=== PATIENT | female | born 2000 | race Hispanic/Latino ===

== ENCOUNTER → 2024-06-15 | Outpatient (REF) | LOC: M LAB 13:37 | PROVIDERS: ATTEND Nurse Practitioner Adult Health | DX: Z01.89 Encounter for other specified special examinations (principal) ==

== ENCOUNTER → 2024-07-02 | Outpatient (REF) | LOC: M EMP 11:13 | PROVIDERS: ATTEND Family Medicine | DX: R09.89 Other specified symptoms and signs involving the circulatory and respiratory systems (principal) ==

== ENCOUNTER → 2024-07-24 | Outpatient (REF) | LOC: M EMP 10:30 | PROVIDERS: ATTEND Family Medicine | DX: Z11.52 Encounter for screening for COVID-19 (principal) ==

== ENCOUNTER 2024-08-20 23:44 | Emergency (ER) | payer OTHER ==
[~2024-08-20] VITALS: Ht 162.6 cm; Wt 68.2 kg
[2024-08-21 00:12] LABS: URINE PREG TEST POSITIVE (NEGATIVE)
[2024-08-21] MEDS ORDERED: LIDO5DIS41 TD (05:22)
[2024-08-21] MEDS: LIDOCAINE 5% (LIDODERM) PATCH TD ONE (05:30)
[2024-08-21 05:50] VITALS: BP 123/59; TEMP 98.2; O2SAT 99
== END 2024-08-21 05:55 | disposition home or self-care (01) ==
LOC: M ED 23:44
DX: O26.891 Other specified pregnancy related conditions, first trimester (principal); M54.50 Low back pain, unspecified; Z3A.01 Less than 8 weeks gestation of pregnancy; Z79.899 Other long term (current) drug therapy

== ENCOUNTER → 2024-08-31 | Outpatient (REF) ==
[~2024-08-31] MED LIST: LIDO5DIS41 TD
== END ==
LOC: M EMP 07:49
PROVIDERS: ATTEND Family Medicine
DX: Z11.52 Encounter for screening for COVID-19 (principal)

== ENCOUNTER → 2024-08-31 | Outpatient (REF) | LOC: M EMP 08:49 | PROVIDERS: ATTEND Family Medicine | DX: Z11.52 Encounter for screening for COVID-19 (principal); Z20.828 Contact with and (suspected) exposure to other viral communicable diseases ==

== ENCOUNTER 2024-10-10 18:24 | Emergency (ER) | payer OTHER ==
[~2024-10-10] VITALS: Ht 162.6 cm; Wt 67.1 kg
[2024-10-10] MEDS ORDERED: ACET-683 PO (18:33)
[2024-10-10] MEDS ORDERED: FLUO-365 (18:33)
[2024-10-10] MEDS ORDERED: AMOX875T (18:33)
[2024-10-10 19:40] VITALS: BP 112/63; TEMP 98.4; O2SAT 98
[2024-10-10] MEDS ORDERED: LIDVISCBTL SSP (19:57)
== END 2024-10-10 20:07 | disposition home or self-care (01) ==
LOC: M ED 18:24
DX: J02.0 Streptococcal pharyngitis (principal); Z87.891 Personal history of nicotine dependence; Z79.2 Long term (current) use of antibiotics; Z79.1 Long term (current) use of non-steroidal anti-inflammatories (NSAID); Z79.899 Other long term (current) drug therapy

== ENCOUNTER 2025-02-08 11:35 | Emergency (ER) | payer OTHER ==
[~2025-02-08] VITALS: Ht 165.1 cm; Wt 77.6 kg
[~2025-02-08 11:35] MED LIST changes: +ACET-683 PO; +AMOX875T; +FLUO-365; +LIDVISCBTL SSP
[2025-02-08 11:40] VITALS: BP 117/70; TEMP 99.5; O2SAT 99
[2025-02-08] MEDS ORDERED: TUMS500C PO (12:21)
[2025-02-08] MEDS ORDERED: PRENTAB9 PO (12:21)
== END 2025-02-08 12:01 | disposition admitted as inpatient to this hospital (09) ==
LOC: M ED 11:35
DX: Z53.21 Procedure and treatment not carried out due to patient leaving prior to being seen by health care provider (principal)

== ENCOUNTER 2025-02-08 12:06 | Outpatient (CLI) | payer OTHER ==
[~2025-02-08] VITALS: Ht 162.6 cm; Wt 75.7 kg
[2025-02-08] MEDS ORDERED: TUMS500C PO (12:21)
[2025-02-08] MEDS ORDERED: PRENTAB9 PO (12:21)
[2025-02-08 12:25] VITALS: BP 115/60
[2025-02-08] MEDS ORDERED: HOME MED LIST COMPLETE! XX SCH (12:35)
[2025-02-08 14:22] LABS: APPEARANCE, URINE HAZY (CLEAR); BACTERIA, URINE AUTO NEGATIVE (NEGATIVE); BILIRUBIN, URINE AUTO NEGATIVE (NEGATIVE); BLOOD, URINE BLOOD NEGATIVE (NEGATIVE); COLOR, URINE YELLOW (YELLOW); GLUCOSE, URINE (UA) AUTO NEGATIVE (NEGATIVE); KETONE, URINE AUTO NEGATIVE (NEGATIVE); LEUKOCYTE ESTERASE, URINE AUTO NEGATIVE (NEGATIVE); MUCUS, URINE SMALL (NEGATIVE); NITRITE, URINE AUTO NEGATIVE (NEGATIVE); PROTEIN, URINE AUTO NEGATIVE (NEGATIVE); RBC, URINE AUTO 0 /HPF (0-3); SPECIFIC GRAVITY URINE AUTO 1.018 (1.002-1.035); SQUAMOUS EPITHELIAL CELL UR AU 9 /HPF (0-6); UROBILINOGEN, URINE AUTO 0.2 mg/dL (0.0-2.0); WBC, URINE AUTO 4 /HPF (0-3)
[2025-02-08 14:26] LABS: HEMATOCRIT 29.7 % (36.0-47.0); HEMOGLOBIN 9.4 g/dl (12.0-15.5); MEAN CORPUSCULAR HEMOGLOBIN 23.4 pg (27.0-33.0); MEAN CORPUSCULAR HGB CONC 31.6 g/dl (32.0-36.5); MEAN CORPUSCULAR VOLUME 74.1 fl (80.0-96.0); PLATELET COUNT, AUTOMATED 314 10^3/uL (150-450); RED BLOOD COUNT 4.01 10^6/uL (4.00-5.40)
[2025-02-08] MEDS: MULTIVITAMIN -ADULT INJECTION 10 ML in NS (Normal Saline) 0.9% 1,000 ML IV ONE (14:39)
[2025-02-08] MEDS: ONDANSETRON 4MG 2ML VIAL IV ONE (14:50)
[2025-02-08 14:58] LABS: ALBUMIN 2.9 G/DL (3.2-5.2); ALKALINE PHOSPHATASE 100 U/L (35-104); ALT/SGPT 17 U/L (7.0-40); AST/SGOT 18 U/L (<34); BILIRUBIN,TOTAL 0.4 MG/DL (0.3-1.2); BLOOD UREA NITROGEN 7 MG/DL (9-23); CALCIUM LEVEL 8.4 MG/DL (8.5-10.1); CARBON DIOXIDE LEVEL 23 MMOL/L (20-31); CHLORIDE LEVEL 105 MMOL/L (98-107); GLOMERULAR FILTRATION RATE > 90.0 (>60); GLUCOSE, FASTING 74 MG/DL (60-100); POTASSIUM SERUM 3.8 MMOL/L (3.5-5.1); SODIUM LEVEL 137 MMOL/L (136-145); TOTAL PROTEIN 6.6 G/DL (5.7-8.2)
== END 2025-02-08 17:02 | disposition home or self-care (01) ==
LOC: M LDO 12:06
PROVIDERS: ATTEND Advanced Practice Midwife
DX: O21.2 Late vomiting of pregnancy (principal); O99.343 Other mental disorders complicating pregnancy, third trimester; O99.353 Diseases of the nervous system complicating pregnancy, third trimester; F41.9 Anxiety disorder, unspecified; F32.A Depression, unspecified; G43.909 Migraine, unspecified, not intractable, without status migrainosus; Z3A.31 31 weeks gestation of pregnancy
CPT/HCPCS: 36415; 59025; 80053; 81001; 85027; 96360; 96374; G0463; J2405

== ENCOUNTER 2025-03-08 15:40 | Outpatient (CLI) | payer OTHER ==
[~2025-03-08] VITALS: Ht 162.6 cm; Wt 78.6 kg
[~2025-03-08 15:40] MED LIST changes: +LIDO1ADH93 TD; -LIDO5DIS41 TD; +PRENTAB9 PO; +TUMS500C PO
[2025-03-08 16:05] VITALS: BP 120/64
[2025-03-08 17:36] LABS: APPEARANCE, URINE CLOUDY (CLEAR); BACTERIA, URINE AUTO NEGATIVE (NEGATIVE); BILIRUBIN, URINE AUTO NEGATIVE (NEGATIVE); BLOOD, URINE BLOOD NEGATIVE (NEGATIVE); COLOR, URINE YELLOW (YELLOW); GLUCOSE, URINE (UA) AUTO 2+ mg/dL (NEGATIVE); KETONE, URINE AUTO NEGATIVE (NEGATIVE); LEUKOCYTE ESTERASE, URINE AUTO 1+ (NEGATIVE); MUCUS, URINE SMALL (NEGATIVE); NITRITE, URINE AUTO NEGATIVE (NEGATIVE); PROTEIN, URINE AUTO NEGATIVE (NEGATIVE); RBC, URINE AUTO 1 /HPF (0-3); SPECIFIC GRAVITY URINE AUTO 1.016 (1.002-1.035); SQUAMOUS EPITHELIAL CELL UR AU 30 /HPF (0-6); UROBILINOGEN, URINE AUTO 0.2 mg/dL (0.0-2.0); WBC, URINE AUTO 5 /HPF (0-3)
== END 2025-03-08 18:28 | disposition home or self-care (01) ==
LOC: M LDO 15:40
PROVIDERS: ATTEND Advanced Practice Midwife
DX: O47.03 False labor before 37 completed weeks of gestation, third trimester (principal); O99.343 Other mental disorders complicating pregnancy, third trimester; O99.353 Diseases of the nervous system complicating pregnancy, third trimester; F41.9 Anxiety disorder, unspecified; F32.A Depression, unspecified; G43.909 Migraine, unspecified, not intractable, without status migrainosus; Z3A.35 35 weeks gestation of pregnancy
CPT/HCPCS: 59025; 81001; G0463

== ENCOUNTER → 2025-03-10 | Outpatient (REF) | payer OTHER | LOC: M SFHCWAGY 13:05 | PROVIDERS: ATTEND Obstetrics & Gynecology | DX: Z34.93 Encounter for supervision of normal pregnancy, unspecified, third trimester (principal); Z3A.35 35 weeks gestation of pregnancy ==

== ENCOUNTER → 2025-04-17 | Outpatient (CLI) | payer OTHER ==
[~2025-04-17] MED LIST changes: +COLA100C5 PO; +IBUP80TA PO
== END ==
LOC: M LAB 11:56
PROVIDERS: ATTEND Obstetrics & Gynecology
DX: Z11.4 Encounter for screening for human immunodeficiency virus [HIV] (principal)